=== PATIENT | male | born 1985 | race Two or more races ===

== ENCOUNTER 2022-08-23 13:55 | Emergency (ER) | payer MEDICAID ==
[~2022-08-23] VITALS: Ht 185.4 cm; Wt 137.0 kg
[2022-08-23 16:01] VITALS: BP 142/76
[2022-08-23] MEDS ORDERED: ACETAMINOPHEN 500 MG TAB PO ONE (16:45)
[2022-08-23] MEDS ORDERED: ACET-1079 PO (16:48)
[2022-08-23] MEDS ORDERED: IBUP800T26 PO (16:48)
[2022-08-23] MEDS ORDERED: BENZ100C19 PO (16:48)
[2022-08-23] MEDS ORDERED: OSEL75CA5 PO (16:48)
== END 2022-08-23 17:09 | disposition home or self-care (01) ==
LOC: ER 13:55
DX: J10.1 Influenza due to other identified influenza virus with other respiratory manifestations (principal); Z20.822 Contact with and (suspected) exposure to COVID-19
CPT/HCPCS: 36415; 87426; 87804